=== PATIENT | female | born 1985 | race Caucasian/White ===

== ENCOUNTER 2018-11-10 00:59 | Inpatient (IN) | payer MEDICAID, OTHER ==
[~2018-11-10] VITALS: Ht 165.1 cm; Wt 69.1 kg
[2018-11-10] VITALS (7 sets, daily range): BP systolic 109–130; BP diastolic 57–79; PULSE 71–108; RESP 16–18; Ht 165.1 cm; Wt 69.1 kg
[~2018-11-10 00:59] MED LIST: DOCU-144 PO; FER325 PO; IBUP-1542 PO; PREN1TAB13 PO
[2018-11-10] MEDS ORDERED: LACTATED RINGER'S 1,000 ML IV SCH ×2 (01:18→10:46)
[2018-11-10] MEDS ORDERED: OXYTOCIN 30 UNITS/LR 500 ML IV SCH ×3 (01:30→10:46)
[2018-11-10] MEDS ORDERED: CARBOPROST 250 MCG INJ IM PRN ×3 (01:30→11:00)
[2018-11-10] MEDS ORDERED: MISOPROSTOL 200 MCG TAB PR PRN ×3 (01:30→11:00)
[2018-11-10] MEDS ORDERED: CEFAZOLIN 2 GM/50 ML (PMX) 50 ML IVPB SCH (01:30)
[2018-11-10] MEDS ORDERED: METHYLERGONOVINE 0.2 MG INJ IM PRN ×3 (01:30→11:00)
[2018-11-10] MEDS ORDERED: OXYTOCIN 30 UNITS/LR 500 ML IV PRN ×3 (01:30→11:00)
[2018-11-10] MEDS ORDERED: TERBUTALINE 1 ML ONE (01:33)
[2018-11-10] MEDS ORDERED: TERBUTALINE 1 MG/ML INJ SC ONE (02:00)
[2018-11-10] MEDS ORDERED: OXYTOCIN 30 UNITS/LR 500 ML IV ONE ×2 (02:22→03:45)
[2018-11-10] MEDS ORDERED: morphine SULFATE/PF (10 MG/10 ML) INJ ONE (02:23)
[2018-11-10] MEDS ORDERED: ONDANSETRON 4 MG INJ ONE (02:23)
[2018-11-10] MEDS ORDERED: KETOROLAC 30 MG INJ ONE (02:23)
[2018-11-10] MEDS ORDERED: METOCLOPRAMIDE 10 MG INJ ONE (02:23)
[2018-11-10] MEDS ORDERED: CITRIC ACID/NA CITRATE 30 ML CUP PO ONE (02:30)
--- NOTE | 2018-11-10 02:40 | HP ---
Date/Time of Note Date/Time of Note DATE: 11/10/18 TIME: 02:36 OB - History Hx of Present Chief Complaint: contractionts, lkeakege of fluid Estimated Due Date: Dec 03, 2018 Care: Limited Care Obstetrical Complications: None Medical Complications: None Other Concerns: C/S X 2 Past Family/Social History * Past Medical, Surgical, Family and Obstetric Histories reviewed from chart. OB Admission Exam Vital Signs Vital Signs Vital Signs Date Temp Pulse Resp B/P (MAP) Pulse Ox O2 O2 Flow FiO2 Time Delivery Rate 11/10/18 97.9 108 18 130/71 Room Air 01:16 (90) Physical Exam HEENT: WNL Heart: Rhythm Normal Abdomen: WNL Cervical Dilatation: 5cm Effacement: 75% Station: 0 Membranes: Ruptured Amniotic Fluid: Clear Varibility: Marked Contractions on Admission: 6-10 Minutes Apart Last 72 hours Lab Results CBC & BMP 11/10/18 01:10 OB Assessment/Plan Reason for admission: other (IUP 36 weeks in labor, h/o cesarian sectiont X 2) Other plan: pre op for repeat cesarian section explaine the patient risk and benefits of procedure including risk of infection , bleeding risk of onjury intarnal organs and tissues as well as benefits of procedure patient agree with thev plan consent is obtained GAGAN GLASS MD Nov 10, 2018 02:40
--- NOTE | 2018-11-10 02:51 | OPR ---
Operative Report Planned Procedure Free Text/Dictation IUP 36 weeks h/o CS x 2 in labor Procedure date Nov 10, 2018 Procedure(s) repeat LTCS Performed by [employer] Model: VALARIE THOMPSON Anesthesiologist: LEOBARDO WOLFE MD Pre-procedure diagnosis 33 years old IUP 36 weeks h/o CS x 2 in labor [id number] Anesthesia Type: [id number] spinal Post-Procedure Post-procedure diagnosis same Findings Live Baby vertex presentation Estimated Blood Loss: 300 - 400 mls Specimen(s) placenta Grafts/Implant(s) none Complication(s) none Pt Condition post procedure: stable Disposition: PACU Procedure Description Patient was taken to operating room, spinal anesthesia obtained. Pleased in dorsal supine position, prepped and drapped in sterille fashion. Phanenstile insicion was made with the scalpel with excision of previous scar, fascia insised laterally, peritoneum was entered. Bladder blade was pleased.Bladder flap was created. Lower uterine segment insiced in transverese fashion with scalpel and advanced laterally with bandage scissors. heand delivered atraumatically. Cord clump and cut, infant was hand of waithing RN for evaluation, placenta delivered manually. Uterus exteriorised, insision repaired with 2 layers of sutures, no bleeding Uterus return to the abdomen, labs, needles and instruments counted correct X 2. Peritoneum closed with 2 0 chromic. Fascia closed with maxon on loop suture. Skin was clsoed with 3-0 Monocryl. no bleeding. IV antibiotic was given, sterille dressing. Final count correct. Folley clear urine at the end of procedure. Patient was taking to recovery room in stable condition.Final count is correct. GAGAN GLASS MD Nov 10, 2018 02:51
[2018-11-10] MEDS ORDERED: NACL 0.9% 3 ML SYG IV SCH (03:00)
--- NOTE | 2018-11-10 03:12 | TRIAGE ---
OB Triage Datetime Report Generated by CPN: 11/10/2018 03:12 Datetime: 11/10/2018 01:42 Assessment Type: Admission Assessment Vaginal Bleeding: None Maternal Assessment Level of Consciousness: Keenly Alert, Responsive DTR's/Clonus: DTRs 2+; No Clonus Headache: Denies Blurred Vision: No Respiratory Effort: Unlabored; Regular Rhythm; Equal Expansion Breath Sounds, Left: Clear and Equal Breath Sounds, Right: Clear and Equal Nausea/Vomiting: Denies RUQ Epigastric Pain: Denies Lower Extremities Edema: None Degree: None Upper Extremities Edema: None Degree: None Facial Edema: None Fall Risk Assessment History of Falling: (0) No Secondary Diagnosis: (0) No Ambulatory Aid: (0) Bedrest/Nurse Assist IV Therapy: (20) Yes Gait: (0) Normal/Bedrest/Immobile Mental Status: (0) Oriented to Own Ability Fall Score: 20 Fall Risk Score Definition: No Risk: No action required Pain Assessment Pain Scale: 9 Pain Presence: Intermittent Pain Type: Contraction Pain Location: Abdomen; Back; Perineum Datetime: 11/10/2018 01:20 Time of Arrival: 11/10/2018 01:20 EGA: 36.5 Arrived By: Stretcher Arrived From: TRIAGE Datetime: 11/10/2018 01:15 Vaginal Exam Dilatation (cms): 5.0 Effacement (%): 90 Station: -1 Exam By: Nikolay RADFORD, RN Cervix, Consistency: Soft Cervix, Position: Posterior Datetime: 11/10/2018 01:08 Membranes Ruptured Date/Time: 11/09/2018 22:00 Membranes Rupture Method: Spontaneous Amniotic Fluid Color: Clear Amniotic Fluid Amount: Moderate Amniotic Fluid Odor: None Presentation 'A': Cephalic Datetime: 11/10/2018 01:07 Time of Arrival: 11/10/2018 00:51 EGA: 36.5 Arrived By: Wheelchair Arrived From: Home Chief Complaint: UC's, leaking Movement: Present Contractions: Irregular Time Contractions Began: 11/09/2018 23:00 Rupture of Membranes: Unsure Vaginal Bleeding: None Recent Sexual Intercouse: Denies Abdominal Trauma: Not Applicable Patient Complaints: Contractions Time Provider Notified: 11/10/2018 01:26 Provider Notified: DR. GLASS Initial Plan: ELSA WARE, call OB
--- NOTE | 2018-11-10 03:16 | PREAC ---
Date/Time of Note Date/Time of Note DATE: 11/10/18 TIME: 03:13 Anesthesia Eval and Record Evaluation Time Pre-Procedure Interview DATE: 11/10/18 TIME: 02:15 Age 33 Sex female NPO: Other @2200 Preoperative diagnosis repeat c section in labor Planned procedure c section Past Medical History Past Medical History: Includes : Gestational age: (36.5) Surgery & Anesthesia Issues No known issue Meds Anticoagulation: No Beta Samuel within 24 hr: No Reason Beta Samuel not given: Pt. not on B-Samuel Reported Medications Pnv95/Ferrous Fumarate/FA ( Vitamins Tablet) 1 Each Tablet, 1 EACH PO, TAB 11/10/18 Current Medications Lactated Ringer's 1,000 ml @ 125 mls/hr Q8H IV Last administered on 11/10/18at 02:21; Admin Dose 125 MLS/HR; Start 11/10/18 at 01:18 Cefazolin Sodium/ Dextrose 50 ml @ 100 mls/hr ONCE IVPB ; Start 11/10/18 at 01:30 Oxytocin/Lactated Ringer's 500 ml @ 125 mls/hr POST IV ; Start 11/10/18 at 01:30 Oxytocin/Lactated Ringer's 500 ml @ 0 mls/hr ONCE PRN IV .VAGINAL BLEEDING; Start 11/10/18 at 01:30 Methylergonovine Maleate (Methergine) 0.2 mg ONCE PRN IM .VAGINAL BLEEDING; Start 11/10/18 at 01:30 Carboprost Tromethamine (Hemabate) 250 mcg ONCE PRN IM .VAGINAL BLEEDING; Start 11/10/18 at 01:30 Misoprostol (Cytotec) 1,000 mcg ONCE PRN UT .VAGINAL BLEEDING; Start 11/10/18 at 01:30 IV Flush (NS 3 ml) 3 ml PER PROTOCOL IV ; Start 11/10/18 at 03:00 Oxytocin/Lactated Ringer's 500 ml @ 50 mls/hr Q10H IV ; Start 11/10/18 at 02:51; Stop 11/10/18 at 12:50 Ibuprofen (Motrin) 800 mg Q8 PO ; Start 11/10/18 at 06:00 Oxytocin/Lactated Ringer's 500 ml @ 0 mls/hr ONCE PRN IV .VAGINAL BLEEDING; Start 11/10/18 at 03:00 Methylergonovine Maleate (Methergine) 0.2 mg ONCE PRN IM .VAGINAL BLEEDING; Start 11/10/18 at 03:00 Carboprost Tromethamine (Hemabate) 250 mcg ONCE PRN IM .VAGINAL BLEEDING; Start 11/10/18 at 03:00 Misoprostol (Cytotec) 1,000 mcg ONCE PRN UT .VAGINAL BLEEDING; Start 11/10/18 at 03:00 Meds reviewed: Yes Allergies Coded Allergies: No Known Allergy (Unverified , 11/10/18) Allergies Reviewed: Yes Labs/Studies Labs Reviewed: Reviewed by anesthesiologist Result Diagram: 11/10/18 0110 Laboratory Tests 11/10/18 01:10 Blood Bank Test 11/10/18 01:10 Blood Type A POSITIVE Rh Immune Globulin Candidate NO test: Positive Studies: ECG (n/a), CXR (n/a) Pre-procedure Exam Last vitals Vital Signs Date Temp Pulse Resp B/P (MAP) Pulse Ox O2 O2 Flow FiO2 Time Delivery Rate 11/10/18 97.9 108 18 130/71 Room Air 01:16 (90) Airway: Adequate mouth opening Mallampati: Mallampati I Teeth: Normal Lung: Normal Heart: Normal ASA Physical Status ASA physical status: 2 Emergency: E Planned Anesthetic Neuraxial: Spinal Planned Pain Management Sub-arachniod narcotics Pre-operative Attestations Prior to commencing anesthesia and surgery, the patient was re-evaluated, there was verification of: *The patient's identity *The results of appropriate recent lab work and preoperative vital signs *The above evaluation not changing prior to induction *Anesthetic plan, risk benefits, alternative and complications discussed with patient/family; questions answered; patient/family understands, accepts and wishes to proceed. LEOBARDO WOLFE MD Nov 10, 2018 03:16
[2018-11-10] MEDS ORDERED: DIPHENHYDRAMINE 50 MG INJ IV PRN ×2 (04:00)
[2018-11-10] MEDS ORDERED: morphine 2 MG INJ IV PRN ×6 (04:00)
[2018-11-10] MEDS ORDERED: KETOROLAC 30 MG INJ IV PRN (04:00)
[2018-11-10] MEDS ORDERED: NALOXONE (0.4 MG/ML) INJ IV PRN (04:00)
[2018-11-10] MEDS ORDERED: ONDANSETRON 4 MG INJ IV PRN ×2 (04:00)
--- NOTE | 2018-11-10 05:22 | PAC ---
Date/Time of Note Date/Time of Note DATE: 11/10/18 TIME: 05:21 Post-Anesthesia Notes Post-Anesthesia Note Last documented vital signs Vital Signs Date Temp Pulse Resp B/P (MAP) Pulse Ox O2 O2 Flow FiO2 Time Delivery Rate 11/10/18 97.9 89 18 111/61 100 Room Air 05:16 Activity: WNL Respiratory function: WNL Cardiovascular function: WNL Mental status: Baseline Pain reasonably controlled: Yes Hydration appropriate: Yes Nausea/Vomiting absent: No LEOBARDO WOLFE MD Nov 10, 2018 05:22
[2018-11-10] MEDS ORDERED: IBUPROFEN 800 MG TAB PO SCH (06:00)
[2018-11-10] MEDS: KETOROLAC 30 MG INJ IV PRN ×3 (08:05→21:48)
[2018-11-10] MEDS ORDERED: METHYLERGONOVINE 0.2 MG TAB PO PRN (11:00)
[2018-11-10] MEDS ORDERED: LANOLIN HPA 1 PKT TOP PRN (11:00)
[2018-11-10] MEDS ORDERED: NA PHOSPHATE/BIPHOS 133 ML ENEMA PR PRN (11:00)
[2018-11-10] MEDS: SENNA/DOCUSATE NA (8.6MG/50MG) TAB PO SCH (21:40)
[2018-11-11 02:55] VITALS: BP 124/78; PULSE 80; RESP 18
[2018-11-11] MEDS ORDERED: HYDROCODONE/APAP (5/325) TAB PO PRN ×2 (04:56→04:57)
[2018-11-11] MEDS: IBUPROFEN 600 MG TAB PO SCH ×4 (06:51→23:43)
--- NOTE | 2018-11-11 08:00 | OPPN ---
Date/Time of Note Date/Time of Note DATE: 11/11/18 TIME: 07:55 Anesthesia Follow up Anesthesia Follow up Last documented vital signs Vital Signs Date Temp Pulse Resp B/P (MAP) Pulse Ox O2 O2 Flow FiO2 Time Delivery Rate 11/11/18 98.5 80 18 124/78 100 Room Air 02:55 (93) Respiratory function: WNL Cardiovascular function: WNL Comments A 33 year s/p spinal duramorph for post op pain , POD#1 is doin fine. No apin,m N/V/ itching, back pain, neural deficit, SOB. LEOBARDO WOLFE MD Nov 11, 2018 08:00
[2018-11-11 08:30] VITALS: BP 110/59; PULSE 80; RESP 18
[2018-11-11] MEDS: SENNA/DOCUSATE NA (8.6MG/50MG) TAB PO SCH ×2 (09:39→21:04)
--- NOTE | 2018-11-11 10:50 | DS ---
Date/Time of Note Date/Time of Note DATE: 11/11/18 TIME: 10:49 Obstetrical Discharge Record Final Diagnosis Final Diagnosis: delivered Other Final Diagnosis Hospital day: 2 1. Repeat - admitted on 11/10/2018 with rupture of membranes in labor and history of x 2 at 36.5 weeks. She delivered via elective on 11/10/2018. Hospital course was complicated by acute blood loss anemi a. No apparent distress. Fundus firm and below the level of the umbilicus. Cardiovascular regular rate and rhythm. Pulmonary clear to auscultation bilaterally. Incision clean dry intact. Extremities nontender to palpation. Tolerated a regular diet prior to discharge. Pain well controlled. Lochia within normal limits. Breast feeding. + Flatus. Discharge planning on 11/12/18. 2. Acute blood loss anemia-H/H 9.4/29.2. Ferrous sulfate daily. Vital Signs Date Temp Pulse Resp B/P (MAP) Pulse Ox O2 O2 Flow FiO2 Time Delivery Rate 11/11/18 98.3 80 18 110/59 Room Air 08:30 (76) 11/11/18 98.5 80 18 124/78 100 Room Air 02:55 (93) Laboratory Tests Test 11/10/18 01:10 11/10/18 09:29 11/11/18 05:56 Hematocrit 31.6 % 26.0 % 29.2 % Hemoglobin 10.3 g/dl 8.2 g/dl 9.4 g/dl Platelet Count 216 10^3/UL 179 10^3/UL 233 10^3/UL White Blood Count 12.3 10^3/ul 11.8 10^3/ul 12.3 10^3/ul patient to be reassessed in am and then discharged by laborist if stable Section Section: Repeat Condition on Discharge Physical Assessment Patient Condition: Stable MIKE MCKEON MD Nov 11, 2018 10:50
[2018-11-11] MEDS: FERROUS SULFATE (EC) 325 MG TAB PO SCH (12:25)
[2018-11-11 15:45] VITALS: BP 112/56; PULSE 73; RESP 18
[2018-11-11 19:50] VITALS: BP 132/81; PULSE 87; RESP 19
[2018-11-12 03:25] VITALS: BP 104/65; PULSE 92; RESP 19
[2018-11-12] MEDS: IBUPROFEN 600 MG TAB PO SCH ×2 (05:23→11:30)
[2018-11-12 08:00] VITALS: BP 119/70; PULSE 81; RESP 18
[2018-11-12] MEDS: SENNA/DOCUSATE NA (8.6MG/50MG) TAB PO SCH (08:58)
[2018-11-12] MEDS: FERROUS SULFATE (EC) 325 MG TAB PO SCH (08:58)
--- NOTE | 2018-11-12 09:09 | QN ---
Documentation Comment POD#3 is stable afebrile tolerates diet No VB +BM +voids VS stable Gen NAD Abd soft NT ND Incision intact Genitalia No blood at Perineum --->Discharge Home --->precautions discussed RUSSEL AMEZQUITA M.D. Nov 12, 2018 09:09
--- NOTE | 2018-11-12 09:10 | DS ---
Date/Time of Note Date/Time of Note DATE: 11/12/18 TIME: 09:09 Discharge Summary Admission/Discharge Info Admit Date/Time Nov 10, 2018 at 01:18 Discharge Date/Time Discharge Diagnosis Patient Condition: Good Hospital Course Uneventful Home Meds Active Scripts Docusate Sodium* (Colace*) 100 Mg Capsule, 100 MG PO BID for 30 Days, #60 CAP Prov:MIKE MCKEON MD 11/11/18 Ibuprofen* (Ibuprofen*) 600 Mg Tablet, 600 MG PO Q6 for 30 Days, #90 TAB 1 Refill Prov:MIKE MCKEON MD 11/11/18 Ferrous Sulfate* (Ferrous Sulfate*) 325 Mg Tabec, 325 MG PO DAILY for 30 Days, #30 TAB 1 Refill Prov:MIKE MCKEON MD 11/11/18 Reported Medications Pnv95/Ferrous Fumarate/FA ( Vitamins Tablet) 1 Each Tablet, 1 EACH PO, TAB 11/10/18 Primary Care Provider Care Physician No Primary Pending Labs Laboratory Tests Test 11/12/18 06:03 Lab Scanned Report [facility] [id number] RUSSEL AMEZQUITA M.D. Nov 12, 2018 09:10
[2018-11-12 16:34] VITALS: BP 109/65; PULSE 79; RESP 18
[2018-11-13] MEDS ORDERED: DIPHTH/TET/ACEL PERTUSS (ADULT) 0.5 ML VIAL IM* ONE (09:00)
--- NOTE | 2018-11-13 18:06 | DELSUM ---
Delivery Summary A-C Datetime Report Generated by CPN: 11/13/2018 18:06 DELIVERY PERSONNEL Mixer Machine Feeder: Tersigni, Pretty MATERNAL INFORMATION Delivery Anesthesia: Spinal Medications in Delivery: see Anesthesia flowsheet Delivery QBL (ml): 400 Placenta Cultured: No Maternal Complications: PROM; Other Other Maternal Complications: came in labor at 36.5 weeks LABOR SUMMARY EDC: 12/03/2018 00:00 No. Babies in Womb: 1 Attempted: No Labor Anesthesia: Intrathecal LABOR INFORMATION Reason for Induction: Not Applicable Onset of Labor: 11/09/2018 23:00 Group B Beta Strep: Not Done Antibiotics # of Doses: 1 Antibiotics Time of Last Dose: 11/10/2018 02:35 Steroids Given: None Reason Steroids Not Administered: Not Applicable MEMBRANES Membranes Rupture Method: Spontaneous Rupture of Membranes: 11/09/2018 22:00 Length of Rupture (hr): 5.15 Amniotic Fluid Color: Clear Amniotic Fluid Amount: Moderate Amniotic Fluid Odor: None STAGES OF LABOR Stage 3 hr: 0 Stage 3 min: 1 Total Time in Labor hr: 4 Total Time in Labor min: 10 CSECTION DELIVERY Primary Indication: Other Other Primary Indication: Labor Secondary Indication: Other Other Secondary Indication: 2 previous C/S CSection Urgency: Emergency CSection Incidence: Repeat Labor: Labor Elective: Nonelective CSection Incision: Lower Uterine Transverse BABY A INFORMATION Infant Delivery Date/Time: 11/10/2018 03:09 Method of Delivery: Born in Route : No : N/A Forceps: N/A Vacuum Extraction: N/A Shoulder Dystocia : N/A SHOULDER DYSTOCIA BABY A Infant Delivery Date/Time: 11/10/2018 03:09 PRESENTATION/POSITION BABY A Presentation: Cephalic Cephalic Presentation: Vertex Vertex Position: Left Occipital Anterior Breech Presentation: N/A PLACENTA INFORMATION BABY A Placenta Delivery Time : 11/10/2018 03:10 Placenta Method of Delivery: Manual Removal Placenta Status: Delivered SCORES BABY A Heart Rate 1 min: >100 bpm Resp Effort 1 min: Good Cry Reflex Irritability 1 min: Cough/Sneeze/Pulls Away Muscle Tone 1 min: Active Motion Color 1 min: Blue/Pale Resuscitation Effort 1 min: Tactile Stimulation SCORE 1 MIN: 8 Heart Rate 5 min: >100 bpm Resp Effort 5 min: Good Cry Reflex Irritability 5 min: Cough/Sneeze/Pulls Away Muscle Tone 5 min: Active Motion Color 5 min: Body [place], Extremit Blue Resuscitation Effort 5 min: Tactile Stimulation SCORE 5 MIN: 9 INFORMATION BABY A Gestational Age at Delivery: 36.5 Gestational Status: Late - 34- 36.6 Weeks Outcome : Liveborn, with signs of life Infant Condition : Stable Sex: Male IDENTIFICATION/MEDS BABY A ID Band Number: [id number] ID Band Location: Right Leg; Left Arm Sensor Applied: Yes Sensor Number: [id number] Sensor Location : Cord Clamp Vitamin K Given : Not Given Erythromycin Given: Not Given WEIGHT/LENGTH BABY A Infant Birthweight (gm): 2990 Infant Weight (lb): 6 Infant Weight (oz): 9 Infant Length (in): 19.50 Length (cm): 49.53 CORD INFORMATION BABY A No. Cord Vessels: 3 Nuchal Cord : N/A Cord Blood Taken: Yes Infant Suction: Mouth; Nose; Pharynx ASSESSMENT BABY A Infant Complications: None Physical Findings at Delivery: Within Normal Limits Infant Respirations: Appears Normal Contour Sander/ALS Called : Yes Care By: ANIMAL CONTROL SPECIALIST / RT Transferred To: Remains with Mother
== END 2018-11-12 17:30 | disposition home or self-care (01) | DRG 786 ==
LOC: OBT 00:59 → L-D 01:01 → OBT 01:18 → L-D 01:18 → MERGE 01:18 → L-D 02:47 → PP1 06:11
PROVIDERS: ADMIT Obstetrics & Gynecology; ATTEND Obstetrics & Gynecology
PROC: 10D00Z1 Extraction of Products of Conception, Low, Open Approach (ICD-10-PCS; principal; 2018-11-10 02:30)
DX: O34.211 Maternal care for low transverse scar from previous cesarean delivery (principal); O60.14X0 Preterm labor third trimester with preterm delivery third trimester, not applicable or unspecified; O99.02 Anemia complicating childbirth; D62 Acute posthemorrhagic anemia; Z3A.36 36 weeks gestation of pregnancy; Z37.0 Single live birth
CPT/HCPCS: 76815; 80307; 84112; 85025; 85610; 85730; 86592; 86703; 86762; 86850; 86900; 86901; 87086; 87340; 88307; 99464; G0463; J0690; J1200; J1885; J2274; J2405; J2590; J2765; J3105; J7120